=== PATIENT | female | born 1955 | race Caucasian/White ===

== ENCOUNTER 2019-12-20 16:01 | Emergency (ER) | payer MEDICARE, MEDICAID, OTHER ==
[~2019-12-20] VITALS: Ht 162.6 cm; Wt 78.0 kg
[~2019-12-20 16:01] MED LIST: IBUP-1223 PO; METH750T2 PO; METO25TA35 PO; METO50TA82 PO; OMEG-157 PO; OMEG1CAP6 PO; OMEP-110 PO; PANT40TA3 PO; TRAM-47 PO
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
[2019-12-20] MEDS ORDERED: HYDROcodone/APAP 5/325 TABLET PO ONE (18:00)
[2019-12-20] MEDS ORDERED: HYDROcodone/APAP 5/325 TABLET ONE (18:00)
--- NOTE | 2019-12-20 18:02 | NUR ---
PT MEDICATED PER MAR FOR PAIN, TAKEN TO IMAGING AT THIS TIME
[2019-12-20 19:31] VITALS: BP 146/88
== END 2019-12-20 19:34 | disposition home or self-care (01) ==
LOC: ED 19:08
DX: S39.012A Strain of muscle, fascia and tendon of lower back, initial encounter (principal); S33.5XXA Sprain of ligaments of lumbar spine, initial encounter; S16.1XXA Strain of muscle, fascia and tendon at neck level, initial encounter; S80.01XA Contusion of right knee, initial encounter; I10 Essential (primary) hypertension; V89.2XXA Person injured in unspecified motor-vehicle accident, traffic, initial encounter; Y93.89 Activity, other specified; Y92.410 Unspecified street and highway as the place of occurrence of the external cause; Y99.8 Other external cause status
CPT/HCPCS: 72125; 72131; 99284